=== PATIENT | male | born 1990 | race Caucasian/White ===

== ENCOUNTER → 2016-05-03 | Outpatient (CLI) | payer OTHER ==
[~2016-05-03] VITALS: Ht 180.3 cm; Wt 81.6 kg
[~2016-05-03] MED LIST: NS 1,000 ML IV SCH; PROPOFOL 200 MG/20 ML VIAL As Ordered ONE; [UNRECOGNIZED DRUG - CODE] PO
--- NOTE | 2016-05-03 14:13 | ROOR ---
Patient Name: Ozzy Almonte Procedure Date: 05/03/2016 1:48 PM Date of : 1990 Age: 26 Room: [facility] Gender: Male Note Status: Finalized Procedure: Colonoscopy Indications: Hematochezia, Constipation, Rectal pain Providers: Addison RODRIGUEZ MD Referring MD: DEVANTE NOVAK MD Requesting Provider: Medicines: Monitored Anesthesia Care Complications: No immediate complications. Procedure: Pre-Anesthesia Assessment: - The heart rate, respiratory rate, oxygen saturations, blood pressure, adequacy of pulmonary ventilation, and response to care were monitored throughout the procedure. The Colonoscope was introduced through the anus and advanced to the terminal ileum, with identification of the appendiceal orifice and IC valve. The colonoscopy was performed without difficulty. The patient tolerated the procedure well. The quality of the bowel preparation was good. Findings: The perianal exam findings include non-thrombosed external hemorrhoids. Non-bleeding internal hemorrhoids were found during retroflexion. The hemorrhoids were small. The entire examined colon appeared normal on direct and retroflexion views. The terminal ileum appeared normal. Impression: - Moderate Non-thrombosed external hemorrhoids found on perianal exam. - Small Non-bleeding internal hemorrhoids. - The entire examined colon is normal on direct and retroflexion views. - The examined portion of the ileum was normal. - No specimens collected. Recommendation: - The Internal ("painless") Hemorrhoids are not severe and do not require banding. - The external ("painful") Hemorrhoids are moderate. Formal surgery may be considered. - Start Miralax 17 gm twice a day. - Refer to a surgeon at appointment to be scheduled. Addison Rodriguez MD Addison RODRIGUEZ MD 05/03/2016 2:12:47 PM This report has been signed electronically. Number of Addenda: 0 Note Initiated On: 05/03/2016 1:48 PM Estimated Blood Loss: Estimated blood loss: none.
[2016-05-03 14:25] VITALS: BP 116/75
== END ==
LOC: M OPP 11:51
PROVIDERS: ATTEND Internal Medicine Gastroenterology
DX: K92.1 Melena (principal); K59.00 Constipation, unspecified; K62.89 Other specified diseases of anus and rectum; K64.8 Other hemorrhoids; K64.4 Residual hemorrhoidal skin tags

== ENCOUNTER 2018-06-19 05:20 | Emergency (ER) | payer OTHER ==
[~2018-06-19] VITALS: Ht 180.3 cm; Wt 93.2 kg
[~2018-06-19 05:20] MED LIST changes: -NS 1,000 ML IV SCH; -PROPOFOL 200 MG/20 ML VIAL As Ordered ONE
[2018-06-19] MEDS ORDERED: IBUPROFEN 800 MG TAB PO ONE (06:15)
[2018-06-19] MEDS ORDERED: ACETAMINOPHEN 325 MG TAB PO ONE (06:15)
[2018-06-19 07:40] LABS: INFLUENZA A AMPLIFICATION NEGATIVE (NEGATIVE); INFLUENZA B AMPLIFICATION NEGATIVE (NEGATIVE)
[2018-06-19] MEDS ORDERED: AMOX500C PO (07:48)
[2018-06-19] MEDS ORDERED: MAGICMW SSP (07:49)
[2018-06-19 08:19] VITALS: BP 101/59
== END 2018-06-19 08:20 | disposition home or self-care (01) ==
LOC: M ED 05:20
DX: J02.9 Acute pharyngitis, unspecified (principal); Z87.891 Personal history of nicotine dependence